=== PATIENT | male | born 1970 | race Caucasian/White ===

== ENCOUNTER 2018-01-24 11:13 | Emergency (ER) | payer SELFPAY ==
[2018-01-24] VITALS (8 sets, daily range): BP systolic 105–150; BP diastolic 60–90; PULSE 67–84; RESP 12–16; TEMP 36.8; O2SAT 90–98; BMI 36.5
--- NOTE | 2018-01-24 12:18 | ED.AMS ---
HPI - Altered Mental Status <JUVE Villalba - Last Filed: 01/24/18 17:15> General Chief Complaint: Altered Mental Status Stated Complaint: Lethargic Time Seen by Provider: 01/24/18 12:16 Source: patient Mode of arrival: EMS Limitations: altered mental status History of Present Illness HPI narrative: bystanders called 911 because pt was found sleeping in a car and slow to respond, pt states he was with coworker and his coworker/friend was supposed to be driving them to the jobsite, that is all he remembers, he did admit to doing iv heroin and some drugs MD complaint: altered mental status, decreased responsiveness and intoxication Onset (ago): unknown Consistency of symptoms: unknown Context: drug abuse Associated symptoms: denies other symptoms Related Data Home Medications Medication Instructions Recorded Confirmed Unobtainable 01/24/18 01/24/18 Allergies Allergy/AdvReac Type Severity Reaction Status Date / Time No Known Drug Allergies Allergy Verified 01/24/18 12:51 Review of Systems <JUVE Villalba - Last Filed: 01/24/18 17:15> Review of Systems All systems reviewed & are unremarkable except as noted in HPI and below Constitutional Reports system reviewed and no additional complaints, except as docu, Denies chills, Denies fever(s) and Denies lethargy Comments: pt denies having any medical issues or pain ENT Ears, Nose, Mouth, and Throat: Denies neck pain and Denies sore throat Cardiovascular Denies chest pain, Denies irregular heart rhythm, Denies palpitations and Denies dyspnea Respiratory Denies cough, Denies dyspnea and Denies wheezing Gastrointestinal Gastrointestinal: Denies abdominal pain, Denies diarrhea, Denies nausea and Denies vomiting Genitourinary Denies hematuria, Denies difficulty urinating and Denies flank pain Musculoskeletal Denies back pain, Denies muscle weakness and Denies neck pain Psychiatric Denies anxiety, Denies depression, Denies homicidal ideation and Denies suicidal ideation Endocrine Denies palpitations Hematologic/Lymphatic Denies easy bruising Allergic/Immunologic Denies wheezing Exam <JUVE Villalba - Last Filed: 01/24/18 17:15> Initial Vital Signs Initial Vital Signs: Vital Signs Temperature 98.2 F 01/24/18 11:32 Pulse Rate 84 01/24/18 11:32 Respiratory Rate 16 01/24/18 11:32 Blood Pressure 150/90 H 01/24/18 11:32 Pulse Oximetry 91 01/24/18 11:32 Const General: cooperative, comfortable, well developed, No well groomed, disheveled, intoxicated appearing and well hydrated Nutritional Appearance: obese centrally obese Orientation: alert, awake, not confused and obtunded Limitations: altered mental status (pt can tell me his name and that he is at hospital and nothing else) [facility] Head: normocephalic and atraumatic Ears: hearing grossly normal bilaterally, external ears normal and TM's normal bilaterally Nose: external nose normal and No nasal discharge Face and sinus: sinuses nontender, face symmetric, no sinus tenderness and No dry mucous membranes Mouth: oral mucosae normal and moist mucous membranes Teeth and gingiva: dentition normal Throat: tonsils normal and uvula midline Eyes General: appearance normal, both eyes and all related structures Eyelids: eyelids normal Conjunctivae: conjunctivae normal Sclera: sclerae normal Pupils: PERRL EOM: EOM intact bilaterally Neck Neck: normal visual inspection, trachea midline, No lymphadenopathy, No midline deformity and No JVD Lymphatic: No lymphedema Chest Chest: normal inspection of the chest Resp Effort & Inspection: normal respiratory effort, able to speak in complete sentences, no respiratory distress and no use of accessory muscles Auscultation: clear to auscultation bilaterally, no rales, no rhonchi and no wheezes Cardio Rate: regular rate Rhythm: regular rhythm Heart Sounds: no click, no gallops, no murmurs and no rubs Pulses: normal peripheral pulses GI Inspection: non-distended Palpation: soft, no hepatosplenomegaly, No guarding, No pulsatile mass and No tender Back/Spine/Pelvis Back: No CVA tenderness Cervical Spine: cervical ROM normal and No pain with cervical ROM Thoracic/Lumbar Spine: thoracic and lumbar spine normal to inspection Skin General: no rashes or lesions noted, No jaundice and No petechiae Neuro General: alert, oriented, gait normal and no focal motor deficits Cognition: abnormal cognition Speech: abnormal speech (slurred, but pt says he can't talk without his teeth) Gait: other (not tested) Other: pt appears under the influence, slow to respond, some slurred speech, will follow some commands, keeps falling asleep Extrem General: normal to inspection and full ROM Psych Appearance: well kempt Mental Status: mental status grossly normal Attitude: cooperative Thought Content: normal and suicidality Judgment: judgment good <Dominick Jensen DO - Last Filed: 01/25/18 07:50> Initial Vital Signs Initial Vital Signs: Vital Signs Temperature 98.2 F 01/24/18 11:32 Pulse Rate 84 01/24/18 11:32 Respiratory Rate 16 01/24/18 11:32 Blood Pressure 150/90 H 01/24/18 11:32 Pulse Oximetry 91 01/24/18 11:32 Course <JUVE Villalba - Last Filed: 01/24/18 17:15> Orders Ordered: Discontinued Medications Sodium Chloride (Normal Saline 0.9%) 1,000 mls @ 1,000 mls/hr IV BOLUS ONE Stop: 01/24/18 13:26 Last Infusion: 01/24/18 13:29 Dose: 0 mls/hr Admin: 01/24/18 12:50 Dose: 1,000 mls/hr Vital Signs - 8 hr 01/24/18 11:32 01/24/18 11:36 01/24/18 12:36 Temperature 98.2 F Pulse Rate 84 76 77 Respiratory Rate 16 12 14 Blood Pressure 150/90 H Blood Pressure [Right Arm] 150/90 H 131/77 H Pulse Oximetry 91 90 L 94 01/24/18 13:41 01/24/18 14:10 01/24/18 15:07 Temperature Pulse Rate 70 67 71 Respiratory Rate 15 15 Blood Pressure Blood Pressure [Right Arm] 105/62 117/65 105/64 Pulse Oximetry 95 94 94 <Dominick Jensen DO - Last Filed: 01/25/18 07:50> Orders Ordered: Discontinued Medications Sodium Chloride (Normal Saline 0.9%) 1,000 mls @ 1,000 mls/hr IV BOLUS ONE Stop: 01/24/18 13:26 Last Infusion: 01/24/18 13:29 Dose: 0 mls/hr Admin: 01/24/18 12:50 Dose: 1,000 mls/hr Vital Signs - 8 hr 01/24/18 11:32 01/24/18 11:36 01/24/18 12:36 Temperature 98.2 F Pulse Rate 84 76 77 Respiratory Rate 16 12 14 Blood Pressure 150/90 H Blood Pressure [Right Arm] 150/90 H 131/77 H Pulse Oximetry 91 90 L 94 01/24/18 13:41 01/24/18 14:10 01/24/18 15:07 Temperature Pulse Rate 70 67 71 Respiratory Rate 15 15 Blood Pressure Blood Pressure [Right Arm] 105/62 117/65 105/64 Pulse Oximetry 95 94 94 MDM - Altered Mental Status <Julia Eli, ADOPTION COUNSELOR - Last Filed: 01/24/18 17:15> Differential Diagnosis Likely alcoholic intoxication, altered mental status, hypoglycemia, hyponatremia, subarachnoid hemorrhage and sepsis Medical Records Attestation: I reviewed the patient's medical records. Lab Data Attestation: I reviewed the patient's lab results. Result diagrams: 01/24/18 12:30 01/24/18 12:30 Lab Results 01/24/18 01/24/18 01/24/18 Range/Units 12:30 12:30 14:00 WBC 6.6 (4.5-11.0) X10^3/uL RBC 4.73 (4.5-5.9) X10^6/uL Hgb 14.2 (13.5-17.5) g/dL Hct 41.5 (41-53) % MCV 87.7 (80-100) fL MCH 29.9 (26-34) PG MCHC 34.1 (30-36) % RDW 13.3 (11.6-14.8) % Plt Count 272 (150-400) X10^3/uL Neut % (Auto) 44.3 L (50-75) % Lymph % (Auto) 41.9 H (25-40) % [place] % (Auto) 7.1 (3-14) % Eos % (Auto) 5.3 H (2-4) % Baso % (Auto) 1.4 (0-2) % Neut # (Auto) 2900 L (5821-3927) /uL Sodium 142 (137-145) mmol/L Potassium 4.9 (3.4-5.1) mmol/L Chloride 103 (98-107) mmol/L Carbon Dioxide 28 (22-32) mmol/L BUN 12 (9-20) mg/dL Creatinine 1.00 (0.66-1.25) mg/dL Estimated GFR > 60.0 (>60) mL/min BUN/Creatinine Ratio 12.0 (6-22) Glucose 94 (70-100) mg/dL Calcium 9.1 (8.4-10.2) mg/dL Total Bilirubin 1.3 (0.2-1.3) mg/dL AST 127 H (17-59) IU/L ALT 219 H (21-72) IU/L Alkaline Phosphatase 86 (38-126) U/L Total Protein 8.2 (6.3-8.2) g/dL Albumin 4.4 (3.5-5.0) g/dL Globulin 3.8 (1.7-4.1) g/dL Albumin/Globulin Ratio 1.2 (1.0-2.8) Urine Color Urine Appearance Urine pH (4.5-8.0) Ur Specific [place] (1.000-1.035) Urine Protein (Negative) Urine Glucose (UA) (Normal) g/dL Urine Ketones (NEGATIVE) Urine Occult Blood (Negative) Urine Nitrate (Negative) Urine Bilirubin (NEGATIVE) Urine Urobilinogen (0.2) E.U./dL Ur Leukocyte Esterase (NEGATIVE) Urine Opiates Screen Positive H (Negative) Ur Oxycodone Screen Positive H (Negative) Urine Methadone Screen Negative (Negative) Ur Barbiturates Screen Negative (Negative) U Tricyclic Antidepress Positive H (Negative) Ur Phencyclidine Scrn Negative (Negative) Ur Amphetamines Screen Positive H (Negative) U Methamphetamines Scrn Positive H (Negative) Ur MDMA Scrn (Ecstasy) Positive H (Negative) U Benzodiazepines Scrn Positive H (Negative) Urine Cocaine Screen Negative (Negative) U Marijuana (THC) Screen Negative (Negative) Ethyl Alcohol < 10 mg/dL 01/24/18 Range/Units 14:00 WBC (4.5-11.0) X10^3/uL RBC (4.5-5.9) X10^6/uL Hgb (13.5-17.5) g/dL Hct (41-53) % MCV (80-100) fL MCH (26-34) PG MCHC (30-36) % RDW (11.6-14.8) % Plt Count (150-400) X10^3/uL Neut % (Auto) (50-75) % Lymph % (Auto) (25-40) % [place] % (Auto) (3-14) % Eos % (Auto) (2-4) % Baso % (Auto) (0-2) % Neut # (Auto) (2321-6965) /uL Sodium (137-145) mmol/L Potassium (3.4-5.1) mmol/L Chloride (98-107) mmol/L Carbon Dioxide (22-32) mmol/L BUN (9-20) mg/dL Creatinine (0.66-1.25) mg/dL Estimated GFR (>60) mL/min BUN/Creatinine Ratio (6-22) Glucose (70-100) mg/dL Calcium (8.4-10.2) mg/dL Total Bilirubin (0.2-1.3) mg/dL AST (17-59) IU/L ALT (21-72) IU/L Alkaline Phosphatase (38-126) U/L Total Protein (6.3-8.2) g/dL Albumin (3.5-5.0) g/dL Globulin (1.7-4.1) g/dL Albumin/Globulin Ratio (1.0-2.8) Urine Color Yellow Urine Appearance Clear Urine pH 6.0 (4.5-8.0) Ur Specific [place] 1.025 (1.000-1.035) Urine Protein Negative (Negative) Urine Glucose (UA) Negative (Normal) g/dL Urine Ketones Negative (NEGATIVE) Urine Occult Blood Negative (Negative) Urine Nitrate Negative (Negative) Urine Bilirubin Negative (NEGATIVE) Urine Urobilinogen 0.2 (0.2) E.U./dL Ur Leukocyte Esterase Negative (NEGATIVE) Urine Opiates Screen (Negative) Ur Oxycodone Screen (Negative) Urine Methadone Screen (Negative) Ur Barbiturates Screen (Negative) U Tricyclic Antidepress (Negative) Ur Phencyclidine Scrn (Negative) Ur Amphetamines Screen (Negative) U Methamphetamines Scrn (Negative) Ur MDMA Scrn (Ecstasy) (Negative) U Benzodiazepines Scrn (Negative) Urine Cocaine Screen (Negative) U Marijuana (THC) Screen (Negative) Ethyl Alcohol mg/dL Imaging Data CT scan - head: Radiologist's impression: Patient: Santos Ryder MR#: [id number] : 1970 Acct:[id number] Age/Sex: 47 / M Date of Service: 01/24/18 Loc: ED Accession Number: [id number] Procedure: CT head/brain wo con Ordering Provider: Julia Benitez PROCEDURE: CT HEAD/BRAIN WO CON INDICATIONS: patient confused TECHNIQUE: Noncontrast 4.5 mm thick angled axial sections acquired from the foramen magnum to the vertex, with coronal and sagittal reformats. For radiation dose reduction, the following was used: automated exposure control, adjustment of mA and/or kV according to patient size. COMPARISON: None. FINDINGS: Image quality: Mild motion artifact is present. CSF spaces: Basal cisterns are patent. No extra-axial fluid collections. Ventricles are normal in size and shape. Brain: No midline shift. No intracranial masses or hemorrhage. [place]-white matter interface is normal. Skull and face: Calvarium and visualized facial bones are intact, without suspicious lesions. Sinuses: Visualized sinuses and mastoids are clear. IMPRESSION: No acute intracranial hemorrhage. Dictated by: Corey Rueda M.D. on 01/24/2018 at 11:54 Approved by: Corey Rueda M.D. on 01/24/2018 at 11:55 Patient: Santos Ryder MR#: [id number] : 1970 Acct:[id number] Age/Sex: 47 / M Date of Service: 01/24/18 Loc: ED Accession Number: [id number] Procedure: CT head/brain wo con Ordering Provider: Julia Benitez PROCEDURE: CT HEAD/BRAIN WO CON INDICATIONS: patient confused TECHNIQUE: Noncontrast 4.5 mm thick angled axial sections acquired from the foramen magnum to the vertex, with coronal and sagittal reformats. For radiation dose reduction, the following was used: automated exposure control, adjustment of mA and/or kV according to patient size. COMPARISON: None. FINDINGS: Image quality: Mild motion artifact is present. CSF spaces: Basal cisterns are patent. No extra-axial fluid collections. Ventricles are normal in size and shape. Brain: No midline shift. No intracranial masses or hemorrhage. [place]-white matter interface is normal. Skull and face: Calvarium and visualized facial bones are intact, without suspicious lesions. Sinuses: Visualized sinuses and mastoids are clear. IMPRESSION: No acute intracranial hemorrhage. Dictated by: Corey Rueda M.D. on 01/24/2018 at 11:54 Approved by: Corey Rueda M.D. on 01/24/2018 at 11:55 Patient: Santos Ryder MR#: [id number] : 1970 Acct:[id number] Age/Sex: 47 / M Date of Service: 01/24/18 Loc: ED Accession Number: [id number] Procedure: CT head/brain wo con Ordering Provider: Julia Benitez PROCEDURE: CT HEAD/BRAIN WO CON INDICATIONS: patient confused TECHNIQUE: Noncontrast 4.5 mm thick angled axial sections acquired from the foramen magnum to the vertex, with coronal and sagittal reformats. For radiation dose reduction, the following was used: automated exposure control, adjustment of mA and/or kV according to patient size. COMPARISON: None. FINDINGS: Image quality: Mild motion artifact is present. CSF spaces: Basal cisterns are patent. No extra-axial fluid collections. Ventricles are normal in size and shape. Brain: No midline shift. No intracranial masses or hemorrhage. [place]-white matter interface is normal. Skull and face: Calvarium and visualized facial bones are intact, without suspicious lesions. Sinuses: Visualized sinuses and mastoids are clear. IMPRESSION: No acute intracranial hemorrhage. Dictated by: Corey Rueda M.D. on 01/24/2018 at 11:54 Approved by: Corey Rueda M.D. on 01/24/2018 at 11:55 ECG Data Attestation: I personally reviewed and interpreted this ECG as follows: Prior ECG tracings: not available for review Interpretation: NSR Rate [address] changes R bundle branch block no comparions ekg <Dominick Jensen, DO - Last Filed: 01/25/18 07:50> Lab Data Lab Results 01/24/18 01/24/18 01/24/18 Range/Units 12:30 12:30 14:00 WBC 6.6 (4.5-11.0) X10^3/uL RBC 4.73 (4.5-5.9) X10^6/uL Hgb 14.2 (13.5-17.5) g/dL Hct 41.5 (41-53) % MCV 87.7 (80-100) fL MCH 29.9 (26-34) PG MCHC 34.1 (30-36) % RDW 13.3 (11.6-14.8) % Plt Count 272 (150-400) X10^3/uL Neut % (Auto) 44.3 L (50-75) % Lymph % (Auto) 41.9 H (25-40) % [place] % (Auto) 7.1 (3-14) % Eos % (Auto) 5.3 H (2-4) % Baso % (Auto) 1.4 (0-2) % Neut # (Auto) 2900 L (1504-3933) /uL Sodium 142 (137-145) mmol/L Potassium 4.9 (3.4-5.1) mmol/L Chloride 103 (98-107) mmol/L Carbon Dioxide 28 (22-32) mmol/L BUN 12 (9-20) mg/dL Creatinine 1.00 (0.66-1.25) mg/dL Estimated GFR > 60.0 (>60) mL/min BUN/Creatinine Ratio 12.0 (6-22) Glucose 94 (70-100) mg/dL Calcium 9.1 (8.4-10.2) mg/dL Total Bilirubin 1.3 (0.2-1.3) mg/dL AST 127 H (17-59) IU/L ALT 219 H (21-72) IU/L Alkaline Phosphatase 86 (38-126) U/L Total Protein 8.2 (6.3-8.2) g/dL Albumin 4.4 (3.5-5.0) g/dL Globulin 3.8 (1.7-4.1) g/dL Albumin/Globulin Ratio 1.2 (1.0-2.8) Urine Color Urine Appearance Urine pH (4.5-8.0) Ur Specific [place] (1.000-1.035) Urine Protein (Negative) Urine Glucose (UA) (Normal) g/dL Urine Ketones (NEGATIVE) Urine Occult Blood (Negative) Urine Nitrate (Negative) Urine Bilirubin (NEGATIVE) Urine Urobilinogen (0.2) E.U./dL Ur Leukocyte Esterase (NEGATIVE) Urine Opiates Screen Positive H (Negative) Ur Oxycodone Screen Positive H (Negative) Urine Methadone Screen Negative (Negative) Ur Barbiturates Screen Negative (Negative) U Tricyclic Antidepress Positive H (Negative) Ur Phencyclidine Scrn Negative (Negative) Ur Amphetamines Screen Positive H (Negative) U Methamphetamines Scrn Positive H (Negative) Ur MDMA Scrn (Ecstasy) Positive H (Negative) U Benzodiazepines Scrn Positive H (Negative) Urine Cocaine Screen Negative (Negative) U Marijuana (THC) Screen Negative (Negative) Ethyl Alcohol < 10 mg/dL 01/24/18 Range/Units 14:00 WBC (4.5-11.0) X10^3/uL RBC (4.5-5.9) X10^6/uL Hgb (13.5-17.5) g/dL Hct (41-53) % MCV (80-100) fL MCH (26-34) PG MCHC (30-36) % RDW (11.6-14.8) % Plt Count (150-400) X10^3/uL Neut % (Auto) (50-75) % Lymph % (Auto) (25-40) % [place] % (Auto) (3-14) % Eos % (Auto) (2-4) % Baso % (Auto) (0-2) % Neut # (Auto) (3667-2699) /uL Sodium (137-145) mmol/L Potassium (3.4-5.1) mmol/L Chloride (98-107) mmol/L Carbon Dioxide (22-32) mmol/L BUN (9-20) mg/dL Creatinine (0.66-1.25) mg/dL Estimated GFR (>60) mL/min BUN/Creatinine Ratio (6-22) Glucose (70-100) mg/dL Calcium (8.4-10.2) mg/dL Total Bilirubin (0.2-1.3) mg/dL AST (17-59) IU/L ALT (21-72) IU/L Alkaline Phosphatase (38-126) U/L Total Protein (6.3-8.2) g/dL Albumin (3.5-5.0) g/dL Globulin (1.7-4.1) g/dL Albumin/Globulin Ratio (1.0-2.8) Urine Color Yellow Urine Appearance Clear Urine pH 6.0 (4.5-8.0) Ur Specific [place] 1.025 (1.000-1.035) Urine Protein Negative (Negative) Urine Glucose (UA) Negative (Normal) g/dL Urine Ketones Negative (NEGATIVE) Urine Occult Blood Negative (Negative) Urine Nitrate Negative (Negative) Urine Bilirubin Negative (NEGATIVE) Urine Urobilinogen 0.2 (0.2) E.U./dL Ur Leukocyte Esterase Negative (NEGATIVE) Urine Opiates Screen (Negative) Ur Oxycodone Screen (Negative) Urine Methadone Screen (Negative) Ur Barbiturates Screen (Negative) U Tricyclic Antidepress (Negative) Ur Phencyclidine Scrn (Negative) Ur Amphetamines Screen (Negative) U Methamphetamines Scrn (Negative) Ur MDMA Scrn (Ecstasy) (Negative) U Benzodiazepines Scrn (Negative) Urine Cocaine Screen (Negative) U Marijuana (THC) Screen (Negative) Ethyl Alcohol mg/dL Discharge Plan Departure Patient Disposition: Home, Self-Care Clinical Impression: Multiple substance abuse Discharge Date/Time: 01/24/18 18:26 Interventions: ED Discharge Assessment Last Done: 01/24/18 18:17 Instructions: Getting Treatment for Drug Addiction, DI for Drug Abuse and Drug Addiction Prescriptions: No Action Unobtainable RF: 0 Referrals: Antonio Woodall MD [Physician] - (follow up in 3-5 days as needed) Jerson Denis MD [Physician] - Eleno Pabon MD [Physician] - Valeri Johnson MD [Physician] - <Dominick Jensen DO - Last Filed: 01/25/18 07:50> Cosign ED Attending Sameera Attestation: I was immediately available in the department for consultation. This documentation has been reviewed and I agree with assessment and plan. Supervised by Dominick Jensen DO
--- NOTE | 2018-01-24 12:23 | DI.CT.S_ITS ---
PROCEDURE: CT HEAD/BRAIN WO CON INDICATIONS: patient confused TECHNIQUE: Noncontrast 4.5 mm thick angled axial sections acquired from the foramen magnum to the vertex, with coronal and sagittal reformats. For radiation dose reduction, the following was used: automated exposure control, adjustment of mA and/or kV according to patient size. COMPARISON: None. FINDINGS: Image quality: Mild motion artifact is present. CSF spaces: Basal cisterns are patent. No extra-axial fluid collections. Ventricles are normal in size and shape. Brain: No midline shift. No intracranial masses or hemorrhage. [place]-white matter interface is normal. Skull and face: Calvarium and visualized facial bones are intact, without suspicious lesions. Sinuses: Visualized sinuses and mastoids are clear. IMPRESSION: No acute intracranial hemorrhage. Dictated by: Corey Rueda M.D. on 01/24/2018 at 11:54 Approved by: Corey Rueda M.D. on 01/24/2018 at 11:55
[2018-01-24 12:42] LABS: Add Manual Diff / Slide Review NO; Basophils Percent Auto 1.4 % (0-2); Eosinophils Percent Auto 5.3 % (2-4); Hematocrit 41.5 % (41-53); Hemoglobin 14.2 g/dL (13.5-17.5); Lymphocytes Percent Auto 41.9 % (25-40); Mean Corpuscular HGB Conc 34.1 % (30-36); Mean Corpuscular Hemoglobin 29.9 PG (26-34); Mean Corpuscular Volume 87.7 fL (80-100); Monocytes Percent Auto 7.1 % (3-14); Neutrophils Absolute Auto 2900 /uL (3000-5900); Neutrophils Percent Auto 44.3 % (50-75); Platelet Count 272 X10^3/uL (150-400); Red Blood Cell Count 4.73 X10^6/uL (4.5-5.9); Red Cell Distribution Width 13.3 % (11.6-14.8); White Blood Cell Count 6.6 X10^3/uL (4.5-11.0)
[2018-01-24] MEDS: SODIUM CHLORIDE 0.9% 1,000 ML 1000 ML IV (12:50)
--- NOTE | 2018-01-24 12:51 | PC.NURSE ---
Pt has multiple signs of IV injections to hands, arms and feet. Pt admits to haroine use yesterday Pt is alert to self and place. Pt remembers he was supposed to be heading to a job site with a coworker.
[2018-01-24 13:10] LABS: Alanine Aminotransferase 219 IU/L (21-72); Albumin 4.4 g/dL (3.5-5.0); Albumin Globulin Ratio 1.2 (1.0-2.8); Alkaline Phosphatase 86 U/L (38-126); Bilirubin Total 1.3 mg/dL (0.2-1.3); Blood Urea Nitrogen 12 mg/dL (9-20); Calcium 9.1 mg/dL (8.4-10.2); Carbon Dioxide 28 mmol/L (22-32); Chloride 103 mmol/L (98-107); Estimated Glomerular Filt Rate > 60.0 mL/min (>60); Ethanol (ETOH) < 10 mg/dL; Globulin 3.8 g/dL (1.7-4.1); Glucose 94 mg/dL (70-100); Sodium 142 mmol/L (137-145); Total Protein 8.2 g/dL (6.3-8.2)
[2018-01-24 13:11] LABS: HEMOLYSIS 92 (0-50)
[2018-01-24 13:19] LABS: Aspartate Aminotransferase 127 IU/L (17-59); Potassium 4.9 mmol/L (3.4-5.1)
--- NOTE | 2018-01-24 13:33 | ED_ITS ---
HPI - Altered Mental Status <JUVE Villalba - Last Filed: 01/24/18 17:15> General Chief Complaint: Altered Mental Status Stated Complaint: Lethargic Time Seen by Provider: 01/24/18 12:16 Source: patient Mode of arrival: EMS Limitations: altered mental status History of Present Illness HPI narrative: bystanders called 911 because pt was found sleeping in a car and slow to respond, pt states he was with coworker and his coworker/friend was supposed to be driving them [place] the [place], that is all he remembers, he did admit to doing iv heroin and some drugs MD complaint: altered mental status, decreased responsiveness and intoxication Onset (ago): unknown Consistency of symptoms: unknown Context: drug abuse Associated symptoms: denies other symptoms Related Data Home Medications Medication Instructions Recorded Confirmed Unobtainable 01/24/18 01/24/18 Allergies Allergy/AdvReac Type Severity Reaction Status Date / Time No Known Drug Allergies Allergy Verified 01/24/18 12:51 Review of Systems <JUVE Villalba - Last Filed: 01/24/18 17:15> Review of Systems All systems reviewed & are unremarkable except as noted in HPI and below Constitutional Reports system reviewed and no additional complaints, except as docu, Denies chills, Denies fever(s) and Denies lethargy Comments: pt denies having any medical issues or pain ENT Ears, Nose, Mouth, and Throat: Denies neck pain and Denies sore throat Cardiovascular Denies chest pain, Denies irregular heart rhythm, Denies palpitations and Denies dyspnea Respiratory Denies cough, Denies dyspnea and Denies wheezing Gastrointestinal Gastrointestinal: Denies abdominal pain, Denies diarrhea, Denies nausea and Denies vomiting Genitourinary Denies hematuria, Denies difficulty urinating and Denies flank pain Musculoskeletal Denies back pain, Denies muscle weakness and Denies neck pain Psychiatric Denies anxiety, Denies depression, Denies homicidal ideation and Denies suicidal ideation Endocrine Denies palpitations Hematologic/Lymphatic Denies easy bruising Allergic/Immunologic Denies wheezing Exam <JUVE Villalba - Last Filed: 01/24/18 17:15> Initial Vital Signs Initial Vital Signs: Vital Signs Temperature 98.2 F 01/24/18 11:32 Pulse Rate 84 01/24/18 11:32 Respiratory Rate 16 01/24/18 11:32 Blood Pressure 150/90 H 01/24/18 11:32 Pulse Oximetry 91 01/24/18 11:32 Const General: cooperative, comfortable, well developed, No well groomed, disheveled, intoxicated appearing and well hydrated Nutritional Appearance: obese centrally obese Orientation: alert, awake, not confused and obtunded Limitations: altered mental status (pt can tell me his name and that he is at hospital and nothing else) [facility] Head: normocephalic and atraumatic Ears: hearing grossly normal bilaterally, external ears normal and TM's normal bilaterally Nose: external nose normal and No nasal discharge Face and sinus: sinuses nontender, face symmetric, no sinus tenderness and No dry mucous membranes Mouth: oral mucosae normal and moist mucous membranes Teeth and gingiva: dentition normal Throat: tonsils normal and uvula midline Eyes General: appearance normal, both eyes and all related structures Eyelids: eyelids normal Conjunctivae: conjunctivae normal Sclera: sclerae normal Pupils: PERRL EOM: EOM intact bilaterally Neck Neck: normal visual inspection, trachea midline, No lymphadenopathy, No midline deformity and No JVD Lymphatic: No lymphedema Chest Chest: normal inspection of the chest Resp Effort & Inspection: normal respiratory effort, able to speak in complete sentences, no respiratory distress and no use of accessory muscles Auscultation: clear to auscultation bilaterally, no rales, no rhonchi and no wheezes Cardio Rate: regular rate Rhythm: regular rhythm Heart Sounds: no click, no gallops, no murmurs and no rubs Pulses: normal peripheral pulses GI Inspection: non-distended Palpation: soft, no hepatosplenomegaly, No guarding, No pulsatile mass and No tender Back/Spine/Pelvis Back: No CVA tenderness Cervical Spine: cervical ROM normal and No pain with cervical ROM Thoracic/Lumbar Spine: thoracic and lumbar spine normal to inspection Skin General: no rashes or lesions noted, No jaundice and No petechiae Neuro General: alert, oriented, gait normal and no focal motor deficits Cognition: abnormal cognition Speech: abnormal speech (slurred, but pt says he can't talk without his teeth) Gait: other (not tested) Other: pt appears under the influence, slow to respond, some slurred speech, will follow some commands, keeps falling asleep Extrem General: normal to inspection and full ROM Psych Appearance: well kempt Mental Status: mental status grossly normal Attitude: cooperative Thought Content: normal and suicidality Judgment: judgment good <Dominick Jensen DO - Last Filed: 01/25/18 07:50> Initial Vital Signs Initial Vital Signs: Vital Signs Temperature 98.2 F 01/24/18 11:32 Pulse Rate 84 01/24/18 11:32 Respiratory Rate 16 01/24/18 11:32 Blood Pressure 150/90 H 01/24/18 11:32 Pulse Oximetry 91 01/24/18 11:32 Course <JUVE Villalba - Last Filed: 01/24/18 17:15> Orders Ordered: Discontinued Medications Sodium Chloride (Normal Saline 0.9%) 1,000 mls @ 1,000 mls/hr IV BOLUS ONE Stop: 01/24/18 13:26 Last Infusion: 01/24/18 13:29 Dose: 0 mls/hr Admin: 01/24/18 12:50 Dose: 1,000 mls/hr Vital Signs - 8 hr 01/24/18 11:32 01/24/18 11:36 01/24/18 12:36 Temperature 98.2 F Pulse Rate 84 76 77 Respiratory Rate 16 12 14 Blood Pressure 150/90 H Blood Pressure [Right Arm] 150/90 H 131/77 H Pulse Oximetry 91 90 L 94 01/24/18 13:41 01/24/18 14:10 01/24/18 15:07 Temperature Pulse Rate 70 67 71 Respiratory Rate 15 15 Blood Pressure Blood Pressure [Right Arm] 105/62 117/65 105/64 Pulse Oximetry 95 94 94 <Dominick Jensen DO - Last Filed: 01/25/18 07:50> Orders Ordered: Discontinued Medications Sodium Chloride (Normal Saline 0.9%) 1,000 mls @ 1,000 mls/hr IV BOLUS ONE Stop: 01/24/18 13:26 Last Infusion: 01/24/18 13:29 Dose: 0 mls/hr Admin: 01/24/18 12:50 Dose: 1,000 mls/hr Vital Signs - 8 hr 01/24/18 11:32 01/24/18 11:36 01/24/18 12:36 Temperature 98.2 F Pulse Rate 84 76 77 Respiratory Rate 16 12 14 Blood Pressure 150/90 H Blood Pressure [Right Arm] 150/90 H 131/77 H Pulse Oximetry 91 90 L 94 01/24/18 13:41 01/24/18 14:10 01/24/18 15:07 Temperature Pulse Rate 70 67 71 Respiratory Rate 15 15 Blood Pressure Blood Pressure [Right Arm] 105/62 117/65 105/64 Pulse Oximetry 95 94 94 MDM - Altered Mental Status <Julia Eli, [employer] - Last Filed: 01/24/18 17:15> Differential Diagnosis Likely alcoholic intoxication, altered mental status, hypoglycemia, hyponatremia , subarachnoid hemorrhage and sepsis Medical Records Attestation: I reviewed the patient's medical records. Lab Data Attestation: I reviewed the patient's lab results. Result diagrams: 01/24/18 12:30 01/24/18 12:30 Lab Results 01/24/18 01/24/18 01/24/18 Range/Units 12:30 12:30 14:00 WBC 6.6 (4.5-11.0) X10^3/uL RBC 4.73 (4.5-5.9) X10^6/uL Hgb 14.2 (13.5-17.5) g/dL Hct 41.5 (41-53) % MCV 87.7 (80-100) fL MCH 29.9 (26-34) PG MCHC 34.1 (30-36) % RDW 13.3 (11.6-14.8) % Plt Count 272 (150-400) X10^3/uL Neut % (Auto) 44.3 L (50-75) % Lymph % (Auto) 41.9 H (25-40) % Burke % (Auto) 7.1 (3-14) % Eos % (Auto) 5.3 H (2-4) % Baso % (Auto) 1.4 (0-2) % Neut # (Auto) 2900 L (1362-0001) /uL Sodium 142 (137-145) mmol/L Potassium 4.9 (3.4-5.1) mmol/L Chloride 103 (98-107) mmol/L Carbon Dioxide 28 (22-32) mmol/L BUN 12 (9-20) mg/dL Creatinine 1.00 (0.66-1.25) mg/dL Estimated GFR > 60.0 (>60) mL/min BUN/Creatinine Ratio 12.0 (6-22) Glucose 94 (70-100) mg/dL Calcium 9.1 (8.4-10.2) mg/dL Total Bilirubin 1.3 (0.2-1.3) mg/dL AST 127 H (17-59) IU/L ALT 219 H (21-72) IU/L Alkaline Phosphatase 86 (38-126) U/L Total Protein 8.2 (6.3-8.2) g/dL Albumin 4.4 (3.5-5.0) g/dL Globulin 3.8 (1.7-4.1) g/dL Albumin/Globulin Ratio 1.2 (1.0-2.8) Urine Color Urine Appearance Urine pH (4.5-8.0) Ur Specific Clune (1.000-1.035) Urine Protein (Negative) Urine Glucose (UA) (Normal) g/dL Urine Ketones (NEGATIVE) Urine Occult Blood (Negative) Urine Nitrate (Negative) Urine Bilirubin (NEGATIVE) Urine Urobilinogen (0.2) E.U./dL Ur Leukocyte Esterase (NEGATIVE) Urine Opiates Screen Positive H (Negative) Ur Oxycodone Screen Positive H (Negative) Urine Methadone Screen Negative (Negative) Ur Barbiturates Screen Negative (Negative) U Tricyclic Antidepress Positive H (Negative) Ur Phencyclidine Scrn Negative (Negative) Ur Amphetamines Screen Positive H (Negative) U Methamphetamines Scrn Positive H (Negative) Ur MDMA Scrn (Ecstasy) Positive H (Negative) U Benzodiazepines Scrn Positive H (Negative) Urine Cocaine Screen Negative (Negative) U Marijuana (THC) Screen Negative (Negative) Ethyl Alcohol < 10 mg/dL 01/24/18 Range/Units 14:00 WBC (4.5-11.0) X10^3/uL RBC (4.5-5.9) X10^6/uL Hgb (13.5-17.5) g/dL Hct (41-53) % MCV (80-100) fL MCH (26-34) PG MCHC (30-36) % RDW (11.6-14.8) % Plt Count (150-400) X10^3/uL Neut % (Auto) (50-75) % Lymph % (Auto) (25-40) % Burke % (Auto) (3-14) % Eos % (Auto) (2-4) % Baso % (Auto) (0-2) % Neut # (Auto) (1791-8755) /uL Sodium (137-145) mmol/L Potassium (3.4-5.1) mmol/L Chloride (98-107) mmol/L Carbon Dioxide (22-32) mmol/L BUN (9-20) mg/dL Creatinine (0.66-1.25) mg/dL Estimated GFR (>60) mL/min BUN/Creatinine Ratio (6-22) Glucose (70-100) mg/dL Calcium (8.4-10.2) mg/dL Total Bilirubin (0.2-1.3) mg/dL AST (17-59) IU/L ALT (21-72) IU/L Alkaline Phosphatase (38-126) U/L Total Protein (6.3-8.2) g/dL Albumin (3.5-5.0) g/dL Globulin (1.7-4.1) g/dL Albumin/Globulin Ratio (1.0-2.8) Urine Color Yellow Urine Appearance Clear Urine pH 6.0 (4.5-8.0) Ur Specific Clune 1.025 (1.000-1.035) Urine Protein Negative (Negative) Urine Glucose (UA) Negative (Normal) g/dL Urine Ketones Negative (NEGATIVE) Urine Occult Blood Negative (Negative) Urine Nitrate Negative (Negative) Urine Bilirubin Negative (NEGATIVE) Urine Urobilinogen 0.2 (0.2) E.U./dL Ur Leukocyte Esterase Negative (NEGATIVE) Urine Opiates Screen (Negative) Ur Oxycodone Screen (Negative) Urine Methadone Screen (Negative) Ur Barbiturates Screen (Negative) U Tricyclic Antidepress (Negative) Ur Phencyclidine Scrn (Negative) Ur Amphetamines Screen (Negative) U Methamphetamines Scrn (Negative) Ur MDMA Scrn (Ecstasy) (Negative) U Benzodiazepines Scrn (Negative) Urine Cocaine Screen (Negative) U Marijuana (THC) Screen (Negative) Ethyl Alcohol mg/dL Imaging Data CT scan - head: Radiologist's impression: Patient: Santos Ryder MR#: [id number] : 1970 Acct:[id number] Age/Sex: 47 / M Date of Service: 01/24/18 Loc: ED Accession Number: [id number] Procedure: CT head/brain wo con Ordering Provider: Julia Benitez PROCEDURE: CT HEAD/BRAIN WO CON INDICATIONS: patient confused TECHNIQUE: Noncontrast 4.5 mm thick angled axial sections acquired from the foramen magnum to the vertex, with coronal and sagittal reformats. For radiation dose reduction, the following was used: automated exposure control, adjustment of mA and/or kV according to patient size. COMPARISON: None. FINDINGS: Image quality: Mild motion artifact is present. CSF spaces: Basal cisterns are patent. No extra-axial fluid collections. Ventricles are normal in size and shape. Brain: No midline shift. No intracranial masses or hemorrhage. [place]-white matter interface is normal. Skull and face: Calvarium and visualized facial bones are intact, without suspicious lesions. Sinuses: Visualized sinuses and mastoids are clear. IMPRESSION: No acute intracranial hemorrhage. Dictated by: Corey Rueda M.D. on 01/24/2018 at 11:54 Approved by: Corey Rueda M.D. on 01/24/2018 at 11:55 Patient: Santos Ryder MR#: [id number] : 1970 Acct:[id number] Age/Sex: 47 / M Date of Service: 01/24/18 Loc: ED Accession Number: [id number] Procedure: CT head/brain wo con Ordering Provider: Julia Benitez PROCEDURE: CT HEAD/BRAIN WO CON INDICATIONS: patient confused TECHNIQUE: Noncontrast 4.5 mm thick angled axial sections acquired from the foramen magnum to the vertex, with coronal and sagittal reformats. For radiation dose reduction, the following was used: automated exposure control, adjustment of mA and/or kV according to patient size. COMPARISON: None. FINDINGS: Image quality: Mild motion artifact is present. CSF spaces: Basal cisterns are patent. No extra-axial fluid collections. Ventricles are normal in size and shape. Brain: No midline shift. No intracranial masses or hemorrhage. [place]-white matter interface is normal. Skull and face: Calvarium and visualized facial bones are intact, without suspicious lesions. Sinuses: Visualized sinuses and mastoids are clear. IMPRESSION: No acute intracranial hemorrhage. Dictated by: Corey Rueda M.D. on 01/24/2018 at 11:54 Approved by: Corey Rueda M.D. on 01/24/2018 at 11:55 Patient: Santos Ryder MR#: [id number] : 1970 Acct:[id number] Age/Sex: 47 / M Date of Service: 01/24/18 Loc: ED Accession Number: [id number] Procedure: CT head/brain wo con Ordering Provider: Julia Benitez PROCEDURE: CT HEAD/BRAIN WO CON INDICATIONS: patient confused TECHNIQUE: Noncontrast 4.5 mm thick angled axial sections acquired from the foramen magnum to the vertex, with coronal and sagittal reformats. For radiation dose reduction, the following was used: automated exposure control, adjustment of mA and/or kV according to patient size. COMPARISON: None. FINDINGS: Image quality: Mild motion artifact is present. CSF spaces: Basal cisterns are patent. No extra-axial fluid collections. Ventricles are normal in size and shape. Brain: No midline shift. No intracranial masses or hemorrhage. [place]-white matter interface is normal. Skull and face: Calvarium and visualized facial bones are intact, without suspicious lesions. Sinuses: Visualized sinuses and mastoids are clear. IMPRESSION: No acute intracranial hemorrhage. Dictated by: Corey Rueda M.D. on 01/24/2018 at 11:54 Approved by: Corey Rueda M.D. on 01/24/2018 at 11:55 ECG Data Attestation: I personally reviewed and interpreted this ECG as follows: Prior ECG tracings: not available for review Interpretation: NSR Rate [address] changes R bundle branch block no comparions ekg <Dominick Jensen, DO - Last Filed: 01/25/18 07:50> Lab Data Lab Results 01/24/18 01/24/18 01/24/18 Range/Units 12:30 12:30 14:00 WBC 6.6 (4.5-11.0) X10^3/uL RBC 4.73 (4.5-5.9) X10^6/uL Hgb 14.2 (13.5-17.5) g/dL Hct 41.5 (41-53) % MCV 87.7 (80-100) fL MCH 29.9 (26-34) PG MCHC 34.1 (30-36) % RDW 13.3 (11.6-14.8) % Plt Count 272 (150-400) X10^3/uL Neut % (Auto) 44.3 L (50-75) % Lymph % (Auto) 41.9 H (25-40) % Burke % (Auto) 7.1 (3-14) % Eos % (Auto) 5.3 H (2-4) % Baso % (Auto) 1.4 (0-2) % Neut # (Auto) 2900 L (6858-8988) /uL Sodium 142 (137-145) mmol/L Potassium 4.9 (3.4-5.1) mmol/L Chloride 103 (98-107) mmol/L Carbon Dioxide 28 (22-32) mmol/L BUN 12 (9-20) mg/dL Creatinine 1.00 (0.66-1.25) mg/dL Estimated GFR > 60.0 (>60) mL/min BUN/Creatinine Ratio 12.0 (6-22) Glucose 94 (70-100) mg/dL Calcium 9.1 (8.4-10.2) mg/dL Total Bilirubin 1.3 (0.2-1.3) mg/dL AST 127 H (17-59) IU/L ALT 219 H (21-72) IU/L Alkaline Phosphatase 86 (38-126) U/L Total Protein 8.2 (6.3-8.2) g/dL Albumin 4.4 (3.5-5.0) g/dL Globulin 3.8 (1.7-4.1) g/dL Albumin/Globulin Ratio 1.2 (1.0-2.8) Urine Color Urine Appearance Urine pH (4.5-8.0) Ur Specific Clune (1.000-1.035) Urine Protein (Negative) Urine Glucose (UA) (Normal) g/dL Urine Ketones (NEGATIVE) Urine Occult Blood (Negative) Urine Nitrate (Negative) Urine Bilirubin (NEGATIVE) Urine Urobilinogen (0.2) E.U./dL Ur Leukocyte Esterase (NEGATIVE) Urine Opiates Screen Positive H (Negative) Ur Oxycodone Screen Positive H (Negative) Urine Methadone Screen Negative (Negative) Ur Barbiturates Screen Negative (Negative) U Tricyclic Antidepress Positive H (Negative) Ur Phencyclidine Scrn Negative (Negative) Ur Amphetamines Screen Positive H (Negative) U Methamphetamines Scrn Positive H (Negative) Ur MDMA Scrn (Ecstasy) Positive H (Negative) U Benzodiazepines Scrn Positive H (Negative) Urine Cocaine Screen Negative (Negative) U Marijuana (THC) Screen Negative (Negative) Ethyl Alcohol < 10 mg/dL 01/24/18 Range/Units 14:00 WBC (4.5-11.0) X10^3/uL RBC (4.5-5.9) X10^6/uL Hgb (13.5-17.5) g/dL Hct (41-53) % MCV (80-100) fL MCH (26-34) PG MCHC (30-36) % RDW (11.6-14.8) % Plt Count (150-400) X10^3/uL Neut % (Auto) (50-75) % Lymph % (Auto) (25-40) % Burke % (Auto) (3-14) % Eos % (Auto) (2-4) % Baso % (Auto) (0-2) % Neut # (Auto) (6050-4779) /uL Sodium (137-145) mmol/L Potassium (3.4-5.1) mmol/L Chloride (98-107) mmol/L Carbon Dioxide (22-32) mmol/L BUN (9-20) mg/dL Creatinine (0.66-1.25) mg/dL Estimated GFR (>60) mL/min BUN/Creatinine Ratio (6-22) Glucose (70-100) mg/dL Calcium (8.4-10.2) mg/dL Total Bilirubin (0.2-1.3) mg/dL AST (17-59) IU/L ALT (21-72) IU/L Alkaline Phosphatase (38-126) U/L Total Protein (6.3-8.2) g/dL Albumin (3.5-5.0) g/dL Globulin (1.7-4.1) g/dL Albumin/Globulin Ratio (1.0-2.8) Urine Color Yellow Urine Appearance Clear Urine pH 6.0 (4.5-8.0) Ur Specific Clune 1.025 (1.000-1.035) Urine Protein Negative (Negative) Urine Glucose (UA) Negative (Normal) g/dL Urine Ketones Negative (NEGATIVE) Urine Occult Blood Negative (Negative) Urine Nitrate Negative (Negative) Urine Bilirubin Negative (NEGATIVE) Urine Urobilinogen 0.2 (0.2) E.U./dL Ur Leukocyte Esterase Negative (NEGATIVE) Urine Opiates Screen (Negative) Ur Oxycodone Screen (Negative) Urine Methadone Screen (Negative) Ur Barbiturates Screen (Negative) U Tricyclic Antidepress (Negative) Ur Phencyclidine Scrn (Negative) Ur Amphetamines Screen (Negative) U Methamphetamines Scrn (Negative) Ur MDMA Scrn (Ecstasy) (Negative) U Benzodiazepines Scrn (Negative) Urine Cocaine Screen (Negative) U Marijuana (THC) Screen (Negative) Ethyl Alcohol mg/dL Discharge Plan Departure Patient Disposition: Home, Self-Care Clinical Impression: Multiple substance abuse Discharge Date/Time: 01/24/18 18:26 Interventions: ED Discharge Assessment Last Done: 01/24/18 18:17 Instructions: Getting Treatment for Drug Addiction, DI for Drug Abuse and Drug Addiction Prescriptions: No Action Unobtainable RF: 0 Referrals: Antonio Woodall MD [Physician] - (follow up in 3-5 days as needed) Jerson Denis MD [Physician] - Eleno Pabon MD [Physician] - Valeri Johnson MD [Physician] - <Dominick Jensen DO - Last Filed: 01/25/18 07:50> Cosign ED Attending Sameera Attestation: I was immediately available in the department for consultation. This documentation has been reviewed and I agree with assessment and plan. Supervised by Dominick Jensen DO
[2018-01-24 14:08] LABS: Appearance Urine UA CLEAR; Bilirubin Urine UA NEGATIVE (NEGATIVE); Color Urine UA YELLOW; Glucose Urine UA NEGATIVE (Normal); Ketones Urine UA NEGATIVE (NEGATIVE); Leukocyte Esterase Urine UA NEGATIVE (NEGATIVE); Nitrite Urine UA Negative (Negative); Occult Blood Urine UA NEGATIVE (Negative); Protein Urine UA NEGATIVE (Negative); Specific Gravity Urine UA 1.025 (1.000-1.035); Urobilinogen Urine UA 0.2 E.U./dL (0.2)
[2018-01-24 14:12] LABS: Urine Cocaine Negative (Negative); Urine Morphine/Opi cutoff 2000 Positive (Negative); Urine Tetrahydrocannabinol Negative (Negative)
[2018-01-24 14:13] LABS: Urine Amphetamines Positive (Negative); Urine Barbiturates Negative (Negative); Urine Benzodiazepines Positive (Negative); Urine MDMA Positive (Negative); Urine Methadone Negative (Negative); Urine Methamphetamines Positive (Negative); Urine Oxycodone Positive (Negative); Urine Phencyclidine Negative (Negative); Urine Tricyclic Antidepressant Positive (Negative)
== END 2018-01-24 18:26 | disposition home or self-care (01) ==
PROVIDERS: Emergency Provider Nurse Practitioner
DX: F19.10 Other psychoactive substance abuse, uncomplicated (principal)
CPT/HCPCS: 36415; 36591; 70450; 80053; 80305; 80320; 81003; 82962; 85025; 93005; 96360; 99284; 99285